=== PATIENT | female | born 1985 | race Caucasian/White ===

== ENCOUNTER 2017-08-31 09:46 | Day surgery (SDC) | payer OTHER ==
[2017-08-28 08:22] VITALS: BP 119/80
[~2017-08-31] VITALS: Ht 162.6 cm; Wt 64.1 kg
[~2017-08-31 09:46] MED LIST: HYDR-3240 PO; IBUP-1222 PO
[2017-08-31] MEDS ORDERED: LACTATED RINGERS 1,000 ML IV SCH (10:20)
[2017-08-31 10:26] VITALS: BP 119/80
[2017-08-31] MEDS ORDERED: MULT-658 PO (10:26)
[2017-08-31] MEDS ORDERED: LIDOCAINE 1%, 2ML SQ PRN (10:30)
[2017-08-31] MEDS ORDERED: METHYLERGONOVINE 0.2 MG/ML IM ONE (11:22)
[2017-08-31] MEDS ORDERED: OXYTOCIN 10 UNITS/ML, 1ML ONE (11:22)
[2017-08-31] MEDS ORDERED: MISOPROSTOL 200 MCG TABLET ONE (11:22)
[2017-08-31] MEDS ORDERED: FENTANYL PF 250 MCG/5ML ONE (11:42)
[2017-08-31] MEDS ORDERED: MIDAZOLAM 1 MG/ML, 2ML ONE (11:42)
[2017-08-31] MEDS ORDERED: PROPOFOL 10 MG/ML, 20ML ONE (11:43)
[2017-08-31] MEDS ORDERED: ONDANSETRON 2MG/ML, 2ML ONE (11:43)
[2017-08-31] MEDS ORDERED: DEXAMETHASONE 4 MG/ML, 1ML ONE ×2 (11:43)
[2017-08-31] MEDS ORDERED: MEPERIDINE/PF 25MG/0.5ML IVPush PRN (12:00)
[2017-08-31] MEDS ORDERED: ONDANSETRON 2MG/ML, 2ML IVPush PRN (12:00)
[2017-08-31] MEDS ORDERED: HYDROmorphone 1 MG/ML, 1ML IV PRN (12:00)
[2017-08-31] MEDS ORDERED: FENTANYL PF 100 MCG/2ML IV PRN (12:00)
[2017-08-31] MEDS ORDERED: PROMETHAZINE 25 MG/ML, 1ML IV PRN (12:00)
[2017-08-31] MEDS ORDERED: ACETAMINOPHEN 325 MG TABLET PO PRN (12:00)
[2017-08-31] MEDS ORDERED: OXYcodone 5 MG/5 ML ORAL.SOL UDC PO PRN (12:00)
[2017-08-31] MEDS ORDERED: KETOROLAC 30 MG/1 ML ONE (12:22)
[2017-08-31] MEDS ORDERED: EPHEDRINE 50 MG/ML, 1ML ONE (12:33)
[2017-08-31] MEDS ORDERED: SODIUM CHLORIDE 0.9% PF 10ML ONE (12:33)
[2017-08-31] MEDS ORDERED: ACETAMINOPHEN 650 MG/20.3 ML UDC ONE ×2 (12:54→12:55)
== END 2017-08-31 13:55 | disposition home or self-care (01) ==
LOC: OUT 09:46
PROVIDERS: ATTEND Specialist
DX: O02.1 Missed abortion (principal); Z3A.01 Less than 8 weeks gestation of pregnancy
CPT/HCPCS: 36415; 59820; 85014; 85018; 88305; J1100; J1885; J2250; J2405; J2590; J2704; J3010; J7120; J2210

== ENCOUNTER 2018-07-04 17:22 | Inpatient (IN) | payer OTHER ==
[~2018-07-04] VITALS: Ht 162.6 cm; Wt 80.0 kg
[~2018-07-04 17:22] MED LIST changes: +MULT-658 PO
[2018-07-04] MEDS ORDERED: D5%-LACTATED RINGERS 1,000 ML IV SCH (17:25)
[2018-07-04] MEDS ORDERED: OXYTOCIN 30U/ 0.9% NaCL 500ML 500 ML IV ONE (17:25)
[2018-07-04] MEDS ORDERED: FENTANYL PF 100 MCG/2ML ONE (17:27)
[2018-07-04] MEDS ORDERED: LIDOCAINE/PF 1%, 30ML ONE (17:28)
[2018-07-04] MEDS ORDERED: NEWBORN KIT ONE (17:28)
[2018-07-04] MEDS ORDERED: OXYTOCIN 30U/ 0.9% NaCL 500ML 500 ML ONE (17:29)
[2018-07-04] MEDS ORDERED: MISOPROSTOL 200 MCG TABLET ONE (17:29)
[2018-07-04] MEDS ORDERED: METOCLOPRAMIDE 5 MG/ML, 2ML IVPush PRN (17:30)
[2018-07-04] MEDS ORDERED: SODIUM CITRATE/CITRIC ACID 30 ML UDC PO PRN (17:30)
[2018-07-04] MEDS ORDERED: ONDANSETRON 2MG/ML, 2ML IVPush PRN (17:30)
[2018-07-04] MEDS ORDERED: TERBUTALINE 1 MG/ML, 1ML IVPush PRN (17:30)
[2018-07-04] MEDS ORDERED: FENTANYL PF 100 MCG/2ML IV PRN (17:30)
[2018-07-04] MEDS ORDERED: FENTANYL PF 100 MCG/2ML IVPush PRN (17:30)
[2018-07-04 17:40] VITALS: BP 117/60
[2018-07-04] MEDS: LACTATED RINGERS 1,000 ML IV SCH ×2 (17:40→17:57)
[2018-07-04 17:57] LABS: BASOPHILS # (AUTO) 0.03 x10^3/uL (0-0.1); BASOPHILS % (AUTO) 0 % (0-1); EOSINOPHILS # (AUTO) 0.02 x10^3/uL (0-0.4); EOSINOPHILS % (AUTO) 0 % (1-7); LYMPHOCYTES % (AUTO) 9 % (22-44); MD NO; MEAN CORPUSCULAR HEMOGLOBIN 31.5 pg (27.0-34.8); MEAN CORPUSCULAR HGB CONC 34.1 g/dL (32.4-35.8); MEAN CORPUSCULAR VOLUME 92.4 fL (80-100); MEAN PLATELET VOLUME 9.5 fL (7.4-10.4); MONOCYTES % (AUTO) 5 % (2-9); NEUTROPHILS # (AUTO) 10.91 x10^3/uL (1.8-6.8); NEUTROPHILS % (AUTO) 86 % (42-75); PLATELET COUNT 123 x10^3/uL (130-400); RED BLOOD COUNT 3.99 x10^6/uL (3.82-5.3); RED CELL DISTRIBUTION WIDTH 13.4 % (9.6-15.2)
[2018-07-04] MEDS: FENTANYL/BUPIV./NS/PF 250 ML EPIDCONT SCH (18:15)
[2018-07-04] MEDS: FENTANYL PF 500 MCG, BUPIVACAINE/PF 0.5%, 30ML 62.5 ML in SODIUM CHLORIDE 0.9% 177.5 ML EPIDCONT SCH (18:30)
[2018-07-04] MEDS ORDERED: BUPIVACAINE 0.25% ONE (18:41)
[2018-07-04] MEDS ORDERED: FENTANYL/BUPIV./NS/PF 250 ML EPIDCONT ONE (18:43)
[2018-07-04] MEDS: LACTATED RINGERS 1,000 ML IVBOLUS PRN (19:01)
[2018-07-04] MEDS ORDERED: LACTATED RINGERS 1,000 ML IV SCH (19:16)
[2018-07-04] MEDS ORDERED: FENTANYL/BUPIV./NS/PF 250 ML EPIDCONT SCH (19:16)
[2018-07-04] MEDS ORDERED: CALCIUM CARBONATE 500 MG TAB.CHEW ONE ×2 (19:20→21:20)
[2018-07-04] MEDS ORDERED: EPHEDRINE 50 MG/ML, 1ML IVPush PRN (19:30)
[2018-07-04] MEDS ORDERED: NALOXONE 0.4 MG/ML, 1ML IVPush PRN (19:30)
[2018-07-04] MEDS ORDERED: LACTATED RINGERS 1,000 ML IVBOLUS PRN (19:30)
[2018-07-04] MEDS ORDERED: FENTANYL PF 500 MCG, BUPIVACAINE/PF 0.5%, 30ML 62.5 ML in SODIUM CHLORIDE 0.9% 177.5 ML EPIDCONT SCH (19:30)
[2018-07-04] MEDS ORDERED: CALCIUM CARBONATE 500 MG TAB.CHEW PO PRN (23:00)
[2018-07-05] MEDS ORDERED: DOCUSATE 100 MG CAPSULE PO PRN (01:00)
[2018-07-05] MEDS ORDERED: MISOPROSTOL 200 MCG TABLET PR PRN (01:00)
[2018-07-05] MEDS ORDERED: HYDROcodone/APAP 5/325 TABLET PO PRN ×2 (01:00)
[2018-07-05] MEDS ORDERED: ACETAMINOPHEN 325 MG TABLET PO PRN ×3 (01:00→22:00)
[2018-07-05] MEDS: LACTATED RINGERS 1,000 ML IVBOLUS PRN ×3 (02:26→15:52)
[2018-07-05] MEDS ORDERED: OXYTOCIN 30U/ 0.9% NaCL 500ML 500 ML ONE ×2 (03:13→07:37)
[2018-07-05] MEDS: OXYTOCIN 30U/ 0.9% NaCL 500ML 500 ML IV SCH ×3 (03:17→20:43)
[2018-07-05 03:28] LABS: MEAN CORPUSCULAR HEMOGLOBIN 30.5 pg (27.0-34.8); MEAN CORPUSCULAR HGB CONC 33.2 g/dL (32.4-35.8); MEAN PLATELET VOLUME 9.2 fL (7.4-10.4); PLATELET COUNT 111 x10^3/uL (130-400); RED BLOOD COUNT 2.87 x10^6/uL (3.82-5.3); RED CELL DISTRIBUTION WIDTH 13.3 % (9.6-15.2)
[2018-07-05] MEDS ORDERED: METHYLERGONOVINE 0.2 MG/ML IM PRN (03:30)
[2018-07-05 03:50] LABS: INTERNATIONAL NORMALIZED RATIO 1.02 (0.93-1.1); PROTHROMBIN TIME 10.8 Seconds (9.6-11.5)
[2018-07-05 04:05] VITALS: BP 99/49
[2018-07-05 04:10] LABS: BASOPHILS % (AUTO) 0 % (0-1); EOSINOPHILS % (AUTO) 0 % (1-7); LYMPHOCYTES # (AUTO) 0.98 x10^3/uL (1-3.4); LYMPHOCYTES % (AUTO) 6 % (22-44); MD SCAN; MONOCYTES # (AUTO) 0.92 x10^3/uL (0.2-0.8); MONOCYTES % (AUTO) 5 % (2-9); NEUTROPHILS # (AUTO) 16.02 x10^3/uL (1.8-6.8); NEUTROPHILS % (AUTO) 89 % (42-75)
[2018-07-05] MEDS ORDERED: CEFAZOLIN 1,000 MG ONE (05:36)
[2018-07-05] MEDS ORDERED: EPHEDRINE 50 MG/ML, 1ML ONE (05:36)
[2018-07-05] MEDS ORDERED: DIPHENHYDRAMINE 50 MG/ML, 1ML ONE (05:36)
[2018-07-05] MEDS ORDERED: FENTANYL PF 100 MCG/2ML ONE ×3 (06:12→10:00)
[2018-07-05] MEDS ORDERED: HYDROmorphone 2 MG/ML, 1ML ONE ×3 (06:30→10:00)
[2018-07-05] MEDS ORDERED: TRANEXAMIC ACID 100 MG/ML, 10ML IV ONE ×2 (06:30)
[2018-07-05] MEDS ORDERED: TRANEXAMIC ACID 100 MG/ML, 10ML ONE ×2 (06:31→06:48)
[2018-07-05 06:33] LABS: MEAN CORPUSCULAR HEMOGLOBIN 32.2 pg (27.0-34.8); MEAN PLATELET VOLUME 9.2 fL (7.4-10.4); PLATELET COUNT 102 x10^3/uL (130-400); RED BLOOD COUNT 2.91 x10^6/uL (3.82-5.3); RED CELL DISTRIBUTION WIDTH 13.6 % (9.6-15.2)
[2018-07-05] MEDS: HYDROmorphone 2 MG/ML, 1ML IVPush PRN ×12 (06:35→18:27)
[2018-07-05 06:43] LABS: ALANINE AMINOTRANSFERASE 12 U/L (12-78); ALBUMIN 1.7 g/dL (3.4-5.0); ANION GAP 10 mmol/L (5-15); CALCIUM 7.2 mg/dL (8.5-10.1); CHLORIDE 112 mmol/L (98-107)
[2018-07-05 06:45] LABS: ALKALINE PHOSPHATASE 86 U/L (45-117); BILIRUBIN,TOTAL 1.2 mg/dL (0.2-1.0); TOTAL PROTEIN 4.1 g/dL (6.4-8.2)
[2018-07-05 06:52] LABS: MD YES
[2018-07-05 06:59] LABS: BAND#(MANUAL) 4.71 x10^3/uL; BANDS%(MANUAL) 26 % (0-7); LYMPH#(MANUAL) 0.91 x10^3/uL (1-3.4); LYMPHS% (MANUAL) 5 % (22-44); MONOS#(MANUAL) 0.54 x10^3/uL (0.3-2.7); MONOS% (MANUAL) 3 % (2-9); SEG#(MANUAL) 11.95 x10^3/uL (1.8-6.8); SEGS% (MANUAL) 66 % (42-75)
[2018-07-05 07:01] LABS: <PLATELET ESTIMATE> DECREASED; <PLT MORPHOLOGY> NORMAL PLT MORPH; <RBC MORPHOLOGY> NORMAL; TOXIC GRAN 1+
[2018-07-05] MEDS ORDERED: METOCLOPRAMIDE 5 MG/ML, 2ML ONE (07:24)
[2018-07-05] MEDS ORDERED: SODIUM CITRATE/CITRIC ACID 30 ML UDC ONE (07:24)
[2018-07-05] MEDS ORDERED: FENTANYL PF 100 MCG/2ML IVPush ONE (07:30)
[2018-07-05] MEDS ORDERED: MIDAZOLAM 1 MG/ML, 2ML ONE (07:32)
[2018-07-05] MEDS ORDERED: FENTANYL PF 250 MCG/5ML ONE (07:41)
[2018-07-05] MEDS ORDERED: GLYCOPYRROLATE 0.2MG/1ML, 5ML ONE (07:50)
[2018-07-05] MEDS ORDERED: ROCURONIUM 10MG/ML,5ML ONE (07:50)
[2018-07-05] MEDS ORDERED: DEXAMETHASONE 4 MG/ML, 1ML ONE (07:50)
[2018-07-05] MEDS ORDERED: NEOSTIGMINE 1 MG/ML, 10ML ONE (07:50)
[2018-07-05] MEDS ORDERED: ONDANSETRON 2MG/ML, 2ML ONE (07:50)
[2018-07-05] MEDS ORDERED: SUCCINYLCHOLINE 20 MG/ML, 10ML ONE (07:50)
[2018-07-05] MEDS ORDERED: PROPOFOL 10 MG/ML, 20ML ONE (07:50)
[2018-07-05] MEDS ORDERED: PHENYLEPHRINE 10 MG/ML ONE (07:50)
[2018-07-05] MEDS ORDERED: METHYLERGONOVINE 0.2 MG/ML IM ONE (08:00)
[2018-07-05] MEDS ORDERED: CARBOPROST TROMETHAMINE 250 MCG/ML, 1ML IM ONE (08:00)
[2018-07-05] MEDS: PRENATAL VIT/IRON/FA 1 EACH TABLET PO SCH (09:00)
[2018-07-05] MEDS ORDERED: METOCLOPRAMIDE 5 MG/ML, 2ML IVPush ONE (09:00)
[2018-07-05] MEDS ORDERED: SODIUM CITRATE/CITRIC ACID 30 ML UDC PO ONE (09:00)
[2018-07-05] MEDS ORDERED: PROCHLORPERAZINE 5 MG/ML, 2ML IV PRN (09:30)
[2018-07-05] MEDS ORDERED: hydrALAzine 20 MG/ML, 1ML IV PRN (09:30)
[2018-07-05] MEDS ORDERED: HALOPERIDOL 5 MG/ML IV PRN (09:30)
[2018-07-05] MEDS ORDERED: DIPHENHYDRAMINE 50 MG/ML, 1ML IM PRN (09:30)
[2018-07-05] MEDS ORDERED: FENTANYL PF 100 MCG/2ML IV PRN (09:30)
[2018-07-05] MEDS ORDERED: LABETALOL 5MG/ML, 20ML IV PRN (09:30)
[2018-07-05] MEDS ORDERED: MEPERIDINE/PF 25MG/0.5ML IVPush PRN (09:30)
[2018-07-05] MEDS ORDERED: OXYcodone 5 MG/5 ML ORAL.SOL UDC PO PRN (09:30)
[2018-07-05 10:42] LABS: INTERNATIONAL NORMALIZED RATIO 1.08 (0.93-1.1); PROTHROMBIN TIME 11.4 Seconds (9.6-11.5)
[2018-07-05 10:44] LABS: ALANINE AMINOTRANSFERASE 14 U/L (12-78); ANION GAP 8 mmol/L (5-15); CALCIUM 7.6 mg/dL (8.5-10.1); CHLORIDE 114 mmol/L (98-107); CREATININE 0.73 mg/dL (0.55-1.02)
[2018-07-05 10:46] LABS: ALKALINE PHOSPHATASE 71 U/L (45-117); BILIRUBIN,TOTAL 1.7 mg/dL (0.2-1.0); TOTAL PROTEIN 4.4 g/dL (6.4-8.2)
[2018-07-05 11:02] LABS: MD YES; MEAN CORPUSCULAR HEMOGLOBIN 30.1 pg (27.0-34.8); MEAN CORPUSCULAR HGB CONC 33.6 g/dL (32.4-35.8); MEAN CORPUSCULAR VOLUME 89.6 fL (80-100); MEAN PLATELET VOLUME 8.7 fL (7.4-10.4); PLATELET COUNT 99 x10^3/uL (130-400); RED BLOOD COUNT 3.72 x10^6/uL (3.82-5.3); RED CELL DISTRIBUTION WIDTH 14.1 % (9.6-15.2)
[2018-07-05 11:08] LABS: BAND#(MANUAL) 2.85 x10^3/uL; BANDS%(MANUAL) 23 % (0-7); LYMPH#(MANUAL) 0.87 x10^3/uL (1-3.4); LYMPHS% (MANUAL) 7 % (22-44); MONOS#(MANUAL) 0.87 x10^3/uL (0.3-2.7); MONOS% (MANUAL) 7 % (2-9); SEG#(MANUAL) 7.81 x10^3/uL (1.8-6.8); SEGS% (MANUAL) 63 % (42-75)
[2018-07-05 11:09] LABS: <PLATELET ESTIMATE> DECREASED; <PLT MORPHOLOGY> NORMAL PLT MORPH; <RBC MORPHOLOGY> NORMAL; TOXIC GRAN 1+
[2018-07-05 13:07] LABS: BASOPHILS % (AUTO) 0 % (0-1); EOSINOPHILS % (AUTO) 0 % (1-7); LYMPHOCYTES # (AUTO) 0.91 x10^3/uL (1-3.4); LYMPHOCYTES % (AUTO) 7 % (22-44); MD NO; MEAN CORPUSCULAR HEMOGLOBIN 30.8 pg (27.0-34.8); MEAN CORPUSCULAR HGB CONC 34.4 g/dL (32.4-35.8); MEAN CORPUSCULAR VOLUME 89.7 fL (80-100); MONOCYTES % (AUTO) 3 % (2-9); NEUTROPHILS # (AUTO) 12.15 x10^3/uL (1.8-6.8); NEUTROPHILS % (AUTO) 90 % (42-75); PLATELET COUNT 106 x10^3/uL (130-400); RED BLOOD COUNT 3.52 x10^6/uL (3.82-5.3); RED CELL DISTRIBUTION WIDTH 14.3 % (9.6-15.2)
[2018-07-05 13:18] LABS: ALBUMIN 1.9 g/dL (3.4-5.0); ANION GAP 6 mmol/L (5-15); CALCIUM 7.5 mg/dL (8.5-10.1); CHLORIDE 112 mmol/L (98-107)
[2018-07-05 13:22] LABS: ALANINE AMINOTRANSFERASE 18 U/L (12-78); ALKALINE PHOSPHATASE 68 U/L (45-117); BILIRUBIN,TOTAL 2.3 mg/dL (0.2-1.0); CREATININE 0.61 mg/dL (0.55-1.02); TOTAL PROTEIN 4.3 g/dL (6.4-8.2)
[2018-07-05 14:00] LABS: INTERNATIONAL NORMALIZED RATIO 1.03 (0.93-1.1); PROTHROMBIN TIME 10.9 Seconds (9.6-11.5)
[2018-07-05] MEDS ORDERED: OXYcodone IR 5MG TABLET PO PRN (14:00)
[2018-07-05 16:59] LABS: ALANINE AMINOTRANSFERASE 15 U/L (12-78); ALBUMIN 1.8 g/dL (3.4-5.0); ANION GAP 6 mmol/L (5-15); CALCIUM 7.5 mg/dL (8.5-10.1); CHLORIDE 112 mmol/L (98-107)
[2018-07-05 17:03] LABS: ALKALINE PHOSPHATASE 67 U/L (45-117); BILIRUBIN,TOTAL 1.6 mg/dL (0.2-1.0); CREATINE KINASE, TOTAL 558 U/L (26-192); TOTAL PROTEIN 4.3 g/dL (6.4-8.2)
[2018-07-05 17:15] LABS: INTERNATIONAL NORMALIZED RATIO 1.03 (0.93-1.1); PROTHROMBIN TIME 10.9 Seconds (9.6-11.5)
[2018-07-05 17:22] LABS: BASOPHILS % (AUTO) 0 % (0-1); EOSINOPHILS % (AUTO) 0 % (1-7); LYMPHOCYTES # (AUTO) 1.12 x10^3/uL (1-3.4); LYMPHOCYTES % (AUTO) 8 % (22-44); MD NO; MEAN CORPUSCULAR HEMOGLOBIN 30.7 pg (27.0-34.8); MEAN CORPUSCULAR HGB CONC 34.7 g/dL (32.4-35.8); MEAN CORPUSCULAR VOLUME 88.6 fL (80-100); MEAN PLATELET VOLUME 9.8 fL (7.4-10.4); MONOCYTES # (AUTO) 0.51 x10^3/uL (0.2-0.8); MONOCYTES % (AUTO) 4 % (2-9); NEUTROPHILS % (AUTO) 88 % (42-75); PLATELET COUNT 116 x10^3/uL (130-400); RED BLOOD COUNT 3.29 x10^6/uL (3.82-5.3); RED CELL DISTRIBUTION WIDTH 14.4 % (9.6-15.2)
[2018-07-05] MEDS: FENTANYL/BUPIV./NS/PF 250 ML EPIDCONT SCH (18:15)
[2018-07-05] MEDS: FENTANYL PF 500 MCG, BUPIVACAINE/PF 0.5%, 30ML 62.5 ML in SODIUM CHLORIDE 0.9% 177.5 ML EPIDCONT SCH (18:30)
[2018-07-05 19:50] VITALS: BP 105/53
[2018-07-05] MEDS ORDERED: HYDROmorphone 2 MG/ML, 1ML IV PRN (22:00)
[2018-07-05] MEDS ORDERED: ACETAMINOPHEN 650 MG SUPP PR PRN (22:00)
[2018-07-05] MEDS ORDERED: ONDANSETRON 2MG/ML, 2ML IV PRN (22:00)
[2018-07-05] MEDS: SENNA/DOCUSATE TABLET PO SCH (22:15)
[2018-07-05] MEDS: OXYcodone 5 MG/5 ML ORAL.SOL UDC PO PRN (22:31)
[2018-07-05] MEDS: DOCUSATE 100 MG CAPSULE PO SCH (22:32)
[2018-07-06 00:10] VITALS: BP 90/47
[2018-07-06] MEDS: LACTATED RINGERS 1,000 ML IV SCH ×3 (02:46→22:00)
[2018-07-06] MEDS: OXYcodone 5 MG/5 ML ORAL.SOL UDC PO PRN (02:46)
[2018-07-06 04:30] VITALS: BP 102/76
[2018-07-06 04:33] LABS: CHLORIDE 109 mmol/L (98-107)
[2018-07-06 04:34] LABS: ALANINE AMINOTRANSFERASE 15 U/L (12-78); ALBUMIN 1.7 g/dL (3.4-5.0); ALKALINE PHOSPHATASE 63 U/L (45-117); ANION GAP 8 mmol/L (5-15); BILIRUBIN,TOTAL 0.6 mg/dL (0.2-1.0); CALCIUM 7.4 mg/dL (8.5-10.1); CREATININE 0.57 mg/dL (0.55-1.02); TOTAL PROTEIN 4.3 g/dL (6.4-8.2)
[2018-07-06 04:48] LABS: BASOPHILS # (AUTO) 0.04 x10^3/uL (0-0.1); BASOPHILS % (AUTO) 0 % (0-1); EOSINOPHILS # (AUTO) 0.03 x10^3/uL (0-0.4); EOSINOPHILS % (AUTO) 0 % (1-7); LYMPHOCYTES # (AUTO) 2.31 x10^3/uL (1-3.4); LYMPHOCYTES % (AUTO) 15 % (22-44); MD NO; MEAN CORPUSCULAR HEMOGLOBIN 30.4 pg (27.0-34.8); MEAN CORPUSCULAR VOLUME 89.3 fL (80-100); MEAN PLATELET VOLUME 9.4 fL (7.4-10.4); MONOCYTES % (AUTO) 6 % (2-9); NEUTROPHILS # (AUTO) 11.86 x10^3/uL (1.8-6.8); NEUTROPHILS % (AUTO) 78 % (42-75); PLATELET COUNT 112 x10^3/uL (130-400); RED BLOOD COUNT 2.94 x10^6/uL (3.82-5.3); RED CELL DISTRIBUTION WIDTH 14.8 % (9.6-15.2)
[2018-07-06 05:03] LABS: INTERNATIONAL NORMALIZED RATIO 0.97 (0.93-1.1); PROTHROMBIN TIME 10.3 Seconds (9.6-11.5)
[2018-07-06] MEDS: HYDROcodone/APAP 5/325 TABLET PO PRN ×4 (06:08→21:23)
[2018-07-06] MEDS ORDERED: SIMETHICONE 80 MG CHEW TAB ONE (06:39)
[2018-07-06] MEDS: SIMETHICONE 80 MG CHEW TAB PO SCH ×3 (06:42→21:19)
[2018-07-06] MEDS: OXYTOCIN 30U/ 0.9% NaCL 500ML 500 ML IV SCH (06:43)
[2018-07-06 08:22] VITALS: BP 96/60
[2018-07-06] MEDS ORDERED: FERROUS SULFATE 325 MG TABLET ONE (08:43)
[2018-07-06] MEDS: PRENATAL VIT/IRON/FA 1 EACH TABLET PO SCH (08:56)
[2018-07-06] MEDS: FERROUS SULFATE 325 MG TABLET PO SCH ×2 (08:56→17:56)
[2018-07-06] MEDS: IBUPROFEN 600 MG TABLET PO PRN ×2 (08:56→15:04)
[2018-07-06] MEDS: DOCUSATE 100 MG CAPSULE PO SCH ×2 (08:56→21:20)
[2018-07-06 14:00] VITALS: BP 96/57
[2018-07-06 19:31] VITALS: BP 90/51
[2018-07-06] MEDS: SENNA/DOCUSATE TABLET PO SCH (21:15)
[2018-07-07] MEDS: IBUPROFEN 600 MG TABLET PO PRN ×4 (02:22→21:43)
[2018-07-07] MEDS: HYDROcodone/APAP 5/325 TABLET PO PRN ×4 (02:22→20:15)
[2018-07-07 03:00] VITALS: BP 102/60
[2018-07-07 06:15] LABS: BASOPHILS # (AUTO) 0.01 x10^3/uL (0-0.1); BASOPHILS % (AUTO) 0 % (0-1); EOSINOPHILS # (AUTO) 0.07 x10^3/uL (0-0.4); EOSINOPHILS % (AUTO) 1 % (1-7); LYMPHOCYTES # (AUTO) 1.82 x10^3/uL (1-3.4); LYMPHOCYTES % (AUTO) 23 % (22-44); MD NO; MEAN CORPUSCULAR HEMOGLOBIN 30.9 pg (27.0-34.8); MEAN CORPUSCULAR HGB CONC 34.4 g/dL (32.4-35.8); MEAN PLATELET VOLUME 8.7 fL (7.4-10.4); MONOCYTES # (AUTO) 0.44 x10^3/uL (0.2-0.8); MONOCYTES % (AUTO) 6 % (2-9); NEUTROPHILS # (AUTO) 5.64 x10^3/uL (1.8-6.8); NEUTROPHILS % (AUTO) 71 % (42-75); PLATELET COUNT 114 x10^3/uL (130-400); RED BLOOD COUNT 2.66 x10^6/uL (3.82-5.3); RED CELL DISTRIBUTION WIDTH 14.3 % (9.6-15.2)
[2018-07-07 07:45] VITALS: BP 102/63
[2018-07-07] MEDS: LACTATED RINGERS 1,000 ML IV SCH ×2 (08:00→18:00)
[2018-07-07] MEDS: FERROUS SULFATE 325 MG TABLET PO SCH ×2 (08:44→17:12)
[2018-07-07] MEDS: PRENATAL VIT/IRON/FA 1 EACH TABLET PO SCH (08:44)
[2018-07-07] MEDS: DOCUSATE 100 MG CAPSULE PO SCH ×2 (08:44→21:42)
[2018-07-07] MEDS: SIMETHICONE 80 MG CHEW TAB PO SCH ×3 (08:45→21:43)
[2018-07-07 19:43] VITALS: BP 110/69
[2018-07-07] MEDS: SENNA/DOCUSATE TABLET PO SCH (21:43)
[2018-07-08] MEDS: HYDROcodone/APAP 5/325 TABLET PO PRN ×3 (02:25→12:27)
[2018-07-08] MEDS: LACTATED RINGERS 1,000 ML IV SCH (04:00)
[2018-07-08] MEDS: IBUPROFEN 600 MG TABLET PO PRN ×2 (05:11→12:27)
[2018-07-08 07:35] VITALS: BP 103/67
[2018-07-08] MEDS: SIMETHICONE 80 MG CHEW TAB PO SCH (08:02)
[2018-07-08] MEDS: FERROUS SULFATE 325 MG TABLET PO SCH (08:02)
[2018-07-08] MEDS: DOCUSATE 100 MG CAPSULE PO SCH (08:02)
[2018-07-08] MEDS: PRENATAL VIT/IRON/FA 1 EACH TABLET PO SCH (08:02)
[2018-07-08] MEDS ORDERED: HYDR-3240 PO (10:16)
[2018-07-08] MEDS ORDERED: IBUP-1222 PO (10:16)
[2018-07-08] MEDS ORDERED: DOCU-131 PO (10:17)
[2018-07-08] MEDS ORDERED: FERR325T5 PO (10:18)
== END 2018-07-08 12:55 | disposition home or self-care (01) | DRG 768 ==
LOC: LDOP 17:22 → LDIP 17:27 → CCU 07-05 12:32 → 2NW 07-05 19:35
PROVIDERS: ADMIT Obstetrics & Gynecology; ATTEND Obstetrics & Gynecology
PROC: 0UT90ZZ Resection of Uterus, Open Approach (ICD-10-PCS; 2018-07-05)
PROC: 0UT70ZZ Resection of Bilateral Fallopian Tubes, Open Approach (ICD-10-PCS; 2018-07-05)
PROC: 0W3R7ZZ Control Bleeding in Genitourinary Tract, Via Natural or Artificial Opening (ICD-10-PCS; 2018-07-05)
PROC: 3E0R3BZ Introduction of Anesthetic Agent into Spinal Canal, Percutaneous Approach (ICD-10-PCS; 2018-07-05)
PROC: 00HU33Z Insertion of Infusion Device into Spinal Canal, Percutaneous Approach (ICD-10-PCS; 2018-07-05)
PROC: 0HQ9XZZ Repair Perineum Skin, External Approach (ICD-10-PCS; 2018-07-05)
PROC: 10907ZC Drainage of Amniotic Fluid, Therapeutic from Products of Conception, Via Natural or Artificial Opening (ICD-10-PCS; 2018-07-05)
PROC: 30233L1 Transfusion of Nonautologous Fresh Plasma into Peripheral Vein, Percutaneous Approach (ICD-10-PCS; 2018-07-05)
PROC: 30233N1 Transfusion of Nonautologous Red Blood Cells into Peripheral Vein, Percutaneous Approach (ICD-10-PCS; 2018-07-05)
PROC: 30233R1 Transfusion of Nonautologous Platelets into Peripheral Vein, Percutaneous Approach (ICD-10-PCS; 2018-07-05)
PROC: 30233K1 Transfusion of Nonautologous Frozen Plasma into Peripheral Vein, Percutaneous Approach (ICD-10-PCS; 2018-07-05)
PROC: 10D07Z8 Extraction of Products of Conception, Other, Via Natural or Artificial Opening (ICD-10-PCS; 2018-07-05)
PROC: 10E0XZZ Delivery of Products of Conception, External Approach (ICD-10-PCS; principal; 2018-07-05 07:45)
DX: O99.52 Diseases of the respiratory system complicating childbirth (principal); Z37.0 Single live birth; R57.8 Other shock; E87.2 Acidosis; O72.1 Other immediate postpartum hemorrhage; O75.1 Shock during or following labor and delivery; O67.9 Intrapartum hemorrhage, unspecified; D50.0 Iron deficiency anemia secondary to blood loss (chronic); O99.284 Endocrine, nutritional and metabolic diseases complicating childbirth; J45.909 Unspecified asthma, uncomplicated; O70.0 First degree perineal laceration during delivery; T80.92XA Unspecified transfusion reaction, initial encounter; Y84.8 Other medical procedures as the cause of abnormal reaction of the patient, or of later complication, without mention of misadventure at the time of the procedure; Z3A.39 39 weeks gestation of pregnancy
CPT/HCPCS: 36415; 74018; J3490; 80047; 80053; 82330; 82550; 82803; 82947; 83735; 84100; 84132; 84295; 85014; 85025; 85384; 85610; 85730; 86850; 86900; 86923; 87081; 88305; 88307; G0378; J0690; J1100; J1170; J2250; J2405; J2704; J2710; J3010; J0330; J1200; J2210; J2370; J2590; J2765; J7120; P9016; P9017; P9035; P9040